=== PATIENT | female | born 1955 | race Caucasian/White ===

== ENCOUNTER → 2018-03-09 | Outpatient (CLI) | payer MEDICARE ==
--- NOTE | 2018-03-09 14:09 | Diagnostic Imaging Report ---
PROCEDURE: US Thyroid. TECHNIQUE: Multiple real-time grayscale images were obtained of the thyroid in various projections. INDICATION: Thyroid nodules. FINDINGS: There are no prior studies available for comparison. FINDINGS: The right lobe of the thyroid is prominent and the left lobe is slightly enlarged. The right lobe measures 4.8 x 1.8 x 1.6 cm while the left lobe is estimated to be 5.2 x 2.0 x 1.5 cm (normal gland size 4-5 x 2 x 2 cm or less). Within the left lobe of the thyroid, there is a large 2.5 x 1.9 x 1.6 cm complex predominantly solid nodule. There are also two nodules in the right lobe of the thyroid. The larger of the two is in the mid lateral aspect of the right lobe and measures 1.1 x 0.8 x 0.8 cm. The other is closer to the isthmus and measures 0.8 x 0.4 x 0.5 cm. I suspect that the appearance of the thyroid gland is related to a multinodular goiter. However, the size of the complex lesion in the left lobe is concerning. I would recommend that a nuclear medicine thyroid scan be performed for further evaluation. No other abnormality is identified. IMPRESSION: The left lobe of the thyroid is enlarged and there is a 2.5 x 1.9 x 1.6 cm complex nodule in the inferior pole. There are also two smaller nodules in the inferior pole of the right lobe of the thyroid. Considerations and recommendations as above. Dictated by: Dictated on workstation # [id number]
== END ==
LOC: RAD 10:14
PROVIDERS: ATTEND Family Medicine
DX: E04.2 Nontoxic multinodular goiter (principal)
CPT/HCPCS: 76536